=== PATIENT | male | born 1995 | race American Indian/Alaskan Native ===

== ENCOUNTER 2019-05-16 00:19 | Emergency (ER) | payer OTHER ==
[2019-05-16 00:54] VITALS: BP 139/76
[2019-05-16] MEDS ORDERED: XYLOCAINE 1% MPF 5 mL INFILTRATI ONE (04:32)
[2019-05-16] MEDS ORDERED: IBUPROFEN PO ONE (04:32)
[2019-05-16] MEDS ORDERED: BACTRIM DS PO ONE (04:32)
[2019-05-16] MEDS ORDERED: PERCOCET 5/325 PO ONE (06:08)
[2019-05-16] MEDS ORDERED: ZOFRAN ODT PO ONE (06:08)
--- NOTE | 2019-05-16 06:13 | Emergency Department Report ---
- General Chief Complaint: Skin/Abscess/Foreign Body Stated Complaint: CYST/ARM PAIN Source: patient Mode of arrival: Ambulatory Limitations: No Limitations - History of Present Illness Initial Comments: Patient is a 23-year-old AA male with no past medical history presenting to the ED with complaint of acute onset persistent severe painful swollen erythematous macular papular rash with fluctuance on posterior left forearm for the last 5 days after being bitten by unknown insect. Patient states that he has not been able to sleep in the last 24 hours because of pain. Patient denies fever, chills, nausea, vomiting, numbness or tingling of the left, dizziness, chest pain, shortness of breath, traumatic injury or fall. -: Sudden, days(s) (5) Location: other (left forearm posteriorly) Extremity Location: Left: Forearm (Posterior) 1 - Swollen painful erythematous fluctuant rash 2 - Swollen erythematous maculopapular rash Place: home Patient Tetanus UTD: Yes Context: other (Insect bite) Associated Symptoms: pain. denies: loss of feeling/numbness, suspect foreign body present, unable to move injured part, weakness followed by dizziness, nausea/vomiting, fever Treatments Prior to Arrival: NSAIDS - Related Data Previous Rx's Medication Instructions Recorded Last Taken Type Acetaminophen/Codeine [Tylenol 1 tab PO Q6H PRN #12 tab 05/16/19 Unknown Rx /Codeine # 3 tab] Clindamycin [Clindamycin CAP] 300 mg PO Q8HR #60 capsule 05/16/19 Unknown Rx Ibuprofen [Motrin] 600 mg PO Q8H PRN #20 tablet 05/16/19 Unknown Rx Ondansetron [Zofran Odt] 4 mg PO Q6HR PRN #15 tab.rapdis 05/16/19 Unknown Rx Sulfamethoxazole/Trimethoprim 1 each PO Q12H #20 tablet 05/16/19 Unknown Rx [Bactrim DS TAB] Allergies Allergy/AdvReac Type Severity Reaction Status Date / Time chocolate flavor Allergy Unknown Verified 05/16/19 00:52 ED Review of Systems ROS: Stated complaint: CYST/ARM PAIN Other details as noted in HPI Constitutional: denies: chills, fever Eyes: denies: eye pain, eye discharge, vision change ENT: denies: ear pain, throat pain Respiratory: denies: cough, shortness of breath, wheezing Cardiovascular: denies: chest pain, palpitations Endocrine: no symptoms reported Gastrointestinal: denies: abdominal pain, nausea, diarrhea Genitourinary: denies: urgency, dysuria Musculoskeletal: arthralgia (posterior left forearm pain due to erythematous maculopapular fluctuant painful rash ), myalgia. denies: back pain, joint swelling Skin: rash (erythematous maculopapular fluctuant painful rash on posterior left forearm), pruritus. denies: lesions Neurological: denies: headache, weakness, paresthesias Psychiatric: denies: anxiety, depression Hematological/Lymphatic: denies: easy bleeding, easy bruising ED Past Medical Hx - Past Medical History Previous Medical History?: No - Surgical History Past Surgical History?: No - Social History Smoking Status: Current Every Day Smoker Substance Use Type: None - Medications Home Medications: Home Medications Medication Instructions Recorded Confirmed Last Taken Type Acetaminophen/Codeine [Tylenol 1 tab PO Q6H PRN #12 tab 05/16/19 Unknown Rx /Codeine # 3 tab] Clindamycin [Clindamycin CAP] 300 mg PO Q8HR #60 capsule 05/16/19 Unknown Rx Ibuprofen [Motrin] 600 mg PO Q8H PRN #20 tablet 05/16/19 Unknown Rx Ondansetron [Zofran Odt] 4 mg PO Q6HR PRN #15 tab.rapdis 05/16/19 Unknown Rx Sulfamethoxazole/Trimethoprim 1 each PO Q12H #20 tablet 05/16/19 Unknown Rx [Bactrim DS TAB] ED Physical Exam - General Limitations: No Limitations General appearance: alert, in no apparent distress - Head Head exam: Present: atraumatic, normocephalic, normal inspection - Eye Eye exam: Present: normal appearance, PERRL, EOMI Pupils: Present: normal accommodation - ENT ENT exam: Present: normal exam, normal orophraynx, mucous membranes moist, TM's normal bilaterally, normal external ear exam - Neck Neck exam: Present: normal inspection, full ROM - Respiratory Respiratory exam: Present: normal lung sounds bilaterally. Absent: respiratory distress, wheezes, rales, stridor, chest wall tenderness, decreased breath sounds - Cardiovascular Cardiovascular Exam: Present: normal rhythm, tachycardia, normal heart sounds. Absent: systolic murmur, diastolic murmur, rubs, gallop - GI/Abdominal GI/Abdominal exam: Present: soft, normal bowel sounds. Absent: tenderness, guarding, hyperactive bowel sounds, hypoactive bowel sounds - Rectal Rectal exam: Present: deferred - Extremities Exam Extremities exam: Present: normal inspection, full ROM, tenderness (palpable tenderness on posterior left forearm due to erythematous maculopapular fluctuant rash), normal capillary refill. Absent: joint swelling, calf tenderness - Back Exam Back exam: Present: normal inspection, full ROM. Absent: tenderness, CVA tenderness (L), muscle spasm, paraspinal tenderness - Neurological Exam Neurological exam: Present: alert, oriented X3, CN II-XII intact, normal gait, reflexes normal - Psychiatric Psychiatric exam: Present: normal affect, normal mood, anxious - Skin Skin exam: Present: warm, dry, intact, rash (erythematous maculopapular fluctuant rash on posterior left forearm with tenderness), erythema ED Course Vital Signs 05/16/19 00:53 Temperature 98.8 F Pulse Rate 106 H Respiratory 18 Rate Blood Pressure 139/76 [Right] O2 Sat by Pulse 98 Oximetry - Reevaluation(s) Reevaluation #1: 05/16/19 06:21 This is a 23-year-old male who presented to the ED with painful swollen erythematous macular papular rash with fluctuance on the posterior left forearm. 5 days. In the ED, patient is alert and oriented 3, anxious and appears to be in pain but in no acute distress. Patient was treated for pain and given initial oral antibiotic dose and 80. The left forearm fluctuant rash was cleaned thoroughly and incised and drained per protocol, the patient tolerated the procedure without. The wound was cleaned thoroughly and packed with iodoform gauze and dressed appropriately. On reevaluation, patient's pain is well-controlled with medications. Patient was discharged home on oral antibiotics and pain medications and was advised to return to the ED in 2 days for wound recheck and packing removal. Patient was otherwise advised to follow- up with his primary care physician in 7-10 days for reevaluation or return to the ED immediately if symptoms get worse. - I & D Left Posterior Arm Type of Procedure: Simple Site: Posterior left forearm Blade Size: 11 I & D Procedure: betadine prep, sterile drapes applied, sterile dressing applied Progress: Patient tolerated the procedure well. Anesthesia was completely achieved prior to the initiation of the procedure. The wound was cleaned thoroughly, debrided and packed with iodoform gauze. The wound was then dressed appropriately and the patient is sent home on antibiotics and pain medications and advised to return to the ED in 2 days for wound recheck and packing removal. ED Medical Decision Making - Medical Decision Making This is a 23-year-old male who presented to the ED with painful swollen erythematous macular papular rash with fluctuance on the posterior left forearm. 5 days. In the ED, patient is alert and oriented 3, anxious and appears to be in pain but in no acute distress. Patient was treated for pain and given initial oral antibiotic dose and 80. The left forearm fluctuant rash was cleaned thoroughly and incised and drained per protocol, the patient tolerated the procedure without. The wound was cleaned thoroughly and packed with iodoform gauze and dressed appropriately. On reevaluation, patient's pain is well-controlled with medications. Patient was discharged home on oral antibiotics and pain medications and was advised to return to the ED in 2 days for wound recheck and packing removal. Patient was otherwise advised to follow- up with his primary care physician in 7-10 days for reevaluation or return to the ED immediately if symptoms get worse. - Differential Diagnosis cellulitis; insect bite; abscess; spider bite; folliculitis Critical care attestation.: If time is entered above; I have spent that time in minutes in the direct care of this critically ill patient, excluding procedure time. ED Disposition Clinical Impression: Cutaneous abscess of left upper extremity, Cellulitis of left forearm Insect bite of left upper extremity with infection Qualifiers: Encounter type: initial encounter Qualified Code(s): S40.862A - Insect bite (nonvenomous) of left upper arm, initial encounter; L08.9 - Local infection of the skin and subcutaneous tissue, unspecified; W57.XXXA - Bitten or stung by nonvenomous insect and other nonvenomous arthropods, initial encounter Disposition: - TO HOME OR SELFCARE Is pt being admited?: No Does the pt Need Aspirin: No Condition: Stable Instructions: Cellulitis (ED), Abscess (ED), Insect Bite or Sting (ED) Additional Instructions: Take medications with food, drink plenty of fluids and follow-up with your primary care physician in 7-10 days for reevaluation. Return to the ED immediat manas if symptoms get worse. Otherwise return to the ED in 2 days for wound recheck and packing removal. Prescriptions: Sulfamethoxazole/Trimethoprim [Bactrim DS TAB] 1 each PO Q12H #20 tablet Clindamycin [Clindamycin CAP] 300 mg PO Q8HR #60 capsule Ibuprofen [Motrin] 600 mg PO Q8H PRN #20 tablet PRN Reason: Pain Acetaminophen/Codeine [Tylenol /Codeine # 3 tab] 1 tab PO Q6H PRN #12 tab PRN Reason: Pain , Severe (7-10) Ondansetron [Zofran Odt] 4 mg PO Q6HR PRN #15 tab.rapdis PRN Reason: Nausea Referrals: PRIMARY CARE, [Primary Care Provider] - 3-5 Days Forms: Work/School Release Form(ED) Time of Disposition: 06:10 Print Language: CHINESE
== END 2019-05-16 06:21 | disposition home or self-care (01) ==
LOC: ED 00:19
DX: S40.862A Insect bite (nonvenomous) of left upper arm, initial encounter (principal); L03.114 Cellulitis of left upper limb; F17.200 Nicotine dependence, unspecified, uncomplicated; Z91.018 Allergy to other foods; Z79.899 Other long term (current) drug therapy; Z79.1 Long term (current) use of non-steroidal anti-inflammatories (NSAID); W57.XXXA Bitten or stung by nonvenomous insect and other nonvenomous arthropods, initial encounter; Y93.89 Activity, other specified; Y92.89 Other specified places as the place of occurrence of the external cause; Y99.8 Other external cause status
CPT/HCPCS: Q0162

== ENCOUNTER 2019-05-21 14:21 | Emergency (ER) | payer OTHER ==
--- NOTE | 2019-05-21 14:32 | Event Note ---
ED Screening Note Date of service: 05/21/19 Time: 14:30 ED Screening Note: This is a 23 y.o. M. that presents to the ER for packing to left forearm removal. This initial assessment/diagnostic orders/clinical plan/treatment(s) is/are subject to change based on patients health status, clinical progression and re- assessment by fellow clinical providers in the ED. Further treatment and workup at subsequent clinical providers discretion. Patient/guardian urged not to elope from the ED as their condition may be serious if not clinically assessed and managed. Initial orders include: ACC for further evaluation.
[2019-05-21] MEDS ORDERED: IBUPROFEN PO ONE (16:15)
--- NOTE | 2019-05-21 16:16 | Emergency Department Report ---
ED Recheck HPI - General Chief Complaint: Laceration/Recheck/Suture Stated Complaint: PACKING REMOVAL Time Seen by Provider: 05/21/19 14:30 Source: patient Mode of arrival: Ambulatory Limitations: No Limitations - History of Present Illness Initial Comments: This is a 23-year-old male nontoxic, well nourished in appearance, no acute signs of distress presents to the ED with c/o of for packing removal. Patient stated he had a abscess to left forearm that has been lanced and packing applied. Patient denies any new symptoms. Patient stated he did not take his antibiotics as it was instructed and prescribed. Patient stated he lost his prescription. Patient denies any fever, chills, nausea, vomiting, chest pain, shortness of breath, headache or stiff neck. Patient denies any drug allergies. MD Complaint: wound re-check -: days(s) (5) Initial Visit For: abscess Returns Today for: wound recheck Symptoms Since Prior Visit: no new symptoms, improved Associated Symptoms: none. denies: fever, chills, chest pain, shortness of breath, rash, malaise, nasuea, abdominal pain - Related Data Previous Rx's Medication Instructions Recorded Last Taken Type Acetaminophen/Codeine [Tylenol 1 tab PO Q6H PRN #12 tab 05/16/19 Unknown Rx /Codeine # 3 tab] Clindamycin [Clindamycin CAP] 300 mg PO Q8HR #60 capsule 05/16/19 Unknown Rx Ibuprofen [Motrin] 600 mg PO Q8H PRN #20 tablet 05/16/19 Unknown Rx Ondansetron [Zofran Odt] 4 mg PO Q6HR PRN #15 tab.rapdis 05/16/19 Unknown Rx Sulfamethoxazole/Trimethoprim 1 each PO Q12H #20 tablet 05/16/19 Unknown Rx [Bactrim DS TAB] Clindamycin [Clindamycin CAP] 300 mg PO Q8H #60 cap 05/21/19 Unknown Rx Sulfamethoxazole/Trimethoprim 1 each PO BID #20 tablet 05/21/19 Unknown Rx [Bactrim DS TAB] Allergies Allergy/AdvReac Type Severity Reaction Status Date / Time chocolate flavor Allergy Unknown Verified 05/16/19 00:52 ED Review of Systems ROS: Stated complaint: PACKING REMOVAL Other details as noted in HPI Constitutional: denies: chills, fever Eyes: denies: eye pain, eye discharge, vision change ENT: denies: ear pain, throat pain Respiratory: denies: cough, shortness of breath, wheezing Cardiovascular: denies: chest pain, palpitations Endocrine: no symptoms reported Gastrointestinal: denies: abdominal pain, nausea, diarrhea Genitourinary: denies: urgency, dysuria Musculoskeletal: denies: back pain, joint swelling, arthralgia Skin: denies: rash, lesions Neurological: denies: headache, weakness, paresthesias Psychiatric: denies: anxiety, depression Hematological/Lymphatic: denies: easy bleeding, easy bruising ED Past Medical Hx - Past Medical History Previous Medical History?: No - Surgical History Past Surgical History?: No - Social History Smoking Status: Current Every Day Smoker Substance Use Type: Marijuana - Medications Home Medications: Home Medications Medication Instructions Recorded Confirmed Last Taken Type Acetaminophen/Codeine [Tylenol 1 tab PO Q6H PRN #12 tab 05/16/19 Unknown Rx /Codeine # 3 tab] Clindamycin [Clindamycin CAP] 300 mg PO Q8HR #60 capsule 05/16/19 Unknown Rx Ibuprofen [Motrin] 600 mg PO Q8H PRN #20 tablet 05/16/19 Unknown Rx Ondansetron [Zofran Odt] 4 mg PO Q6HR PRN #15 tab.rapdis 05/16/19 Unknown Rx Sulfamethoxazole/Trimethoprim 1 each PO Q12H #20 tablet 05/16/19 Unknown Rx [Bactrim DS TAB] Clindamycin [Clindamycin CAP] 300 mg PO Q8H #60 cap 05/21/19 Unknown Rx Sulfamethoxazole/Trimethoprim 1 each PO BID #20 tablet 05/21/19 Unknown Rx [Bactrim DS TAB] ED Physical Exam - General Limitations: No Limitations General appearance: alert, in no apparent distress - Head Head exam: Present: atraumatic, normocephalic - Eye Eye exam: Present: normal appearance - Extremities Exam Extremities exam: Present: normal inspection, full ROM, tenderness, normal capillary refill, other (left forearm packing one fourth iodoform removed. No pus or drainage. No swelling. Open wound present.). Absent: joint swelling - Back Exam Back exam: Present: normal inspection, full ROM - Neurological Exam Neurological exam: Present: alert, oriented X3, normal gait - Psychiatric Psychiatric exam: Present: normal affect, normal mood - Skin Skin exam: Present: warm, dry, intact, normal color. Absent: rash ED Course Vital Signs 05/21/19 14:30 Temperature 98.5 F Pulse Rate 95 H Respiratory 18 Rate Blood Pressure 129/77 O2 Sat by Pulse 98 Oximetry - Reevaluation(s) Reevaluation #1: 05/21/19 16:13 Patient is speaking in full sentences with no signs of distress noted. ED Recheck MDM - Medical Decision Making One fourth iota form packing removal. I will discharge patient with prescription that was Khadijah prescribed to him by previous provider of Bactrim and clindamycin. Patient was educated on proper wound care. A sterile dressing has been applied. Area has been clean prior to applying the sterile dressing. Patient was instructed to Follow-up with a primary care doctor in 3-5 days or if symptoms worsen and continue return to emergency room as soon as possible. At time of discharge, the patient does not seem toxic or ill in appearance. No acute signs of distress noted. Patient agrees to discharge treatment plan of care. No further questions noted by the patient. Critical care attestation.: If time is entered above; I have spent that time in minutes in the direct care of this critically ill patient, excluding procedure time. ED Disposition Clinical Impression: Abscess packing removal Disposition: [id number] TO HOME OR SELFCARE Is pt being admited?: No Does the pt Need Aspirin: No Condition: Stable Instructions: Acute Wound Care (ED) Additional Instructions: Follow-up with a primary care doctor in 3-5 days or if symptoms worsen and continue return to emergency room as soon as possible. As educated to use it is crucial that you take your antibiotics as prescribed to. Prescriptions: Sulfamethoxazole/Trimethoprim [Bactrim DS TAB] 1 each PO BID #20 tablet Clindamycin [Clindamycin CAP] 300 mg PO Q8H #60 cap Referrals: PRIMARY CAREMD [Primary Care Provider] - 3-5 Days BRANDIE TOSCANO MD [Staff Physician] - 3-5 Days [facility] [Outside] - 3-5 Days [facility] [Outside] - 3-5 Days Forms: Work/School Release Form(ED)
[2019-05-21 16:28] VITALS: BP 121/70
== END 2019-05-21 16:27 | disposition home or self-care (01) ==
LOC: ED 14:21
DX: L02.414 Cutaneous abscess of left upper limb (principal); F17.200 Nicotine dependence, unspecified, uncomplicated; F12.90 Cannabis use, unspecified, uncomplicated; Z79.899 Other long term (current) drug therapy; Z91.018 Allergy to other foods
CPT/HCPCS: 99283

== ENCOUNTER 2022-01-07 00:56 | Emergency (ER) | payer SELFPAY ==
[2022-01-07 02:03] VITALS: BP 109/61
--- NOTE | 2022-01-07 02:33 | Emergency Department Report ---
ED General Adult HPI - General Chief complaint: Dental/Oral Stated complaint: MOUTH ULCERS Source: patient Mode of arrival: Ambulatory Limitations: No Limitations - History of Present Illness Initial comments: Patient is a 26-year-old -Ira[place] male with no past medical history who presents to the ED with complaint of acute onset persistent painful multiple oral ulcerated lesions on the left mandibular gingival pain and swelling for the last 1 month. Patient states that the ulcers in the mouth have worsened in the last 1 week stated he is unable to eat or drink anything because of worsening pain. Patient denies fever, chills, nausea and vomiting, dizziness, syncope, dysphagia, dysphonia, headache, nasal and sinus congestion, chest pain or shortness of breath. MD Complaint: Sore throat; oral ulcers ; mouth pain -: Sudden, month(s) (1) Location: mouth Radiation: non-radiation Severity scale (0 -10): 7 Quality: aching, sharp Consistency: constant Improves with: none Worsens with: none Associated Symptoms: denies other symptoms. denies: confusion, chest pain, cough, diaphoresis, fever/chills, headaches, loss of appetite, malaise, nausea/vomiting, rash, seizure, shortness of breath, syncope, weakness, other Treatments Prior to Arrival: none - Related Data Previous Rx's Medication Instructions Recorded Last Taken Type Acetaminophen/Codeine [Tylenol 1 tab PO Q6H PRN #12 tab 05/16/19 Unknown Rx /Codeine # 3 tab] Clindamycin [Clindamycin CAP] 300 mg PO Q8HR #60 capsule 05/16/19 Unknown Rx Ibuprofen [Motrin] 600 mg PO Q8H PRN #20 tablet 05/16/19 Unknown Rx Ondansetron [Zofran Odt] 4 mg PO Q6HR PRN #15 tab.rapdis 05/16/19 Unknown Rx Sulfamethoxazole/Trimethoprim 1 each PO Q12H #20 tablet 05/16/19 Unknown Rx [Bactrim DS TAB] Sulfamethoxazole/Trimethoprim 1 each PO BID #20 tablet 05/21/19 Unknown Rx [Bactrim DS TAB] Acyclovir 400 mg PO Q8H #30 tab 01/07/22 Unknown Rx Clindamycin [Clindamycin CAP] 300 mg PO Q8H #30 cap 01/07/22 Unknown Rx Ibuprofen [Motrin] 600 mg PO Q8H PRN #30 tablet 01/07/22 Unknown Rx Lidocaine Viscous 2% 10 ml PO Q6H PRN #120 ml 01/07/22 Unknown Rx Allergies Allergy/AdvReac Type Severity Reaction Status Date / Time chocolate flavor Allergy Unknown Verified 05/16/19 00:52 ED Review of Systems ROS: Stated complaint: MOUTH ULCERS Other details as noted in HPI Constitutional: denies: chills, fever Eyes: denies: eye pain, eye discharge, vision change ENT: throat pain, other (Multiple ulcerated oral lesions with pain). denies: ear pain Respiratory: denies: cough, shortness of breath, wheezing Cardiovascular: denies: chest pain, palpitations Endocrine: no symptoms reported Gastrointestinal: denies: abdominal pain, nausea, vomiting, diarrhea Genitourinary: denies: urgency, dysuria Musculoskeletal: denies: back pain, joint swelling, arthralgia Skin: denies: rash, lesions Neurological: denies: headache, weakness, paresthesias Psychiatric: denies: anxiety, depression Hematological/Lymphatic: denies: easy bleeding, easy bruising ED Past Medical Hx - Social History Smoking Status: Current Every Day Smoker Substance Use Type: Marijuana - Medications Home Medications: Home Medications Medication Instructions Recorded Confirmed Last Taken Type Acetaminophen/Codeine [Tylenol 1 tab PO Q6H PRN #12 tab 05/16/19 Unknown Rx /Codeine # 3 tab] Clindamycin [Clindamycin CAP] 300 mg PO Q8HR #60 capsule 05/16/19 Unknown Rx Ibuprofen [Motrin] 600 mg PO Q8H PRN #20 tablet 05/16/19 Unknown Rx Ondansetron [Zofran Odt] 4 mg PO Q6HR PRN #15 tab.rapdis 05/16/19 Unknown Rx Sulfamethoxazole/Trimethoprim 1 each PO Q12H #20 tablet 05/16/19 Unknown Rx [Bactrim DS TAB] Sulfamethoxazole/Trimethoprim 1 each PO BID #20 tablet 05/21/19 Unknown Rx [Bactrim DS TAB] Acyclovir 400 mg PO Q8H #30 tab 01/07/22 Unknown Rx Clindamycin [Clindamycin CAP] 300 mg PO Q8H #30 cap 01/07/22 Unknown Rx Ibuprofen [Motrin] 600 mg PO Q8H PRN #30 tablet 01/07/22 Unknown Rx Lidocaine Viscous 2% 10 ml PO Q6H PRN #120 ml 01/07/22 Unknown Rx ED Physical Exam - General Limitations: No Limitations General appearance: alert, in no apparent distress - Head Head exam: Present: atraumatic, normocephalic, normal inspection - Eye Eye exam: Present: normal appearance, PERRL, EOMI Pupils: Present: normal accommodation - ENT ENT exam: Present: mucous membranes moist, TM's normal bilaterally, normal external ear exam, other (Multiple oral ulcerated lesions; Mild erythematous oropharynx with multiple lesions) - Neck Neck exam: Present: normal inspection, full ROM. Absent: tenderness, lymphadenopathy - Respiratory Respiratory exam: Present: normal lung sounds bilaterally. Absent: respiratory distress, wheezes, rales, rhonchi, chest wall tenderness, accessory muscle use, decreased breath sounds, prolonged expiratory - Cardiovascular Cardiovascular Exam: Present: regular rate, normal rhythm, normal heart sounds. Absent: systolic murmur, diastolic murmur, rubs, gallop - GI/Abdominal GI/Abdominal exam: Present: soft, normal bowel sounds. Absent: tenderness, guarding, rebound, hyperactive bowel sounds, hypoactive bowel sounds, organomegaly - Extremities Exam Extremities exam: Present: normal inspection, full ROM, normal capillary refill. Absent: tenderness - Back Exam Back exam: Present: normal inspection, full ROM. Absent: tenderness, CVA tenderness (R), CVA tenderness (L), muscle spasm, paraspinal tenderness, vertebral tenderness - Neurological Exam Neurological exam: Present: alert, oriented X3, CN II-XII intact, normal gait, reflexes normal - Psychiatric Psychiatric exam: Present: normal affect, normal mood - Skin Skin exam: Present: warm, dry, intact, normal color. Absent: rash ED Course Vital Signs 01/07/22 01:33 Temperature 98.6 F Pulse Rate 63 Respiratory 18 Rate Blood Pressure 109/61 O2 Sat by Pulse 96 Oximetry ED Medical Decision Making - Medical Decision Making This is a 26-year-old -Iraqi male with no past medical history who presents to the ED with complaint of acute onset persistent painful multiple oral ulcerated lesions on the left mandibular gingival pain and swelling for the last 1 month. Patient states that the ulcers in the mouth have worsened in the last 1 week stated he is unable to eat or drink anything because of worsening pain. In the ED, patient is alert and oriented x3 and is not in any distress. Patient was discharged home on medications based on the history and physical exam findings. Patient symptoms are likely due to herpes simplex type I viral infection or gingivostomatitis complicated by bacterial infection in the mouth. Patient was therefore discharged home on medications and advised to follow-up with his primary care physician in 7 to 10 days for reevaluation. Patient was advised return to the ED immediately if symptoms get worse. - Differential Diagnosis HSV type I; oral ulcers; intraoral infection; gingivitis Critical care attestation.: If time is entered above; I have spent that time in minutes in the direct care of this critically ill patient, excluding procedure time. ED Disposition Clinical Impression: Gingivostomatitis, Oral ulceration, Acute gingivitis Disposition: HOME / SELF CARE / HOMELESS Is pt being admited?: No Does the pt Need Aspirin: No Condition: Stable Instructions: Stomatitis, [id number] Additional Instructions: Take medication with food, drink plenty fluids and follow-up with your primary care physician in 7 to 10 days for reevaluation. Return to the ED immediately if symptoms get worse. Prescriptions: Acyclovir 400 mg PO Q8H #30 tab Clindamycin [Clindamycin CAP] 300 mg PO Q8H #30 cap Lidocaine Viscous 2% 10 ml PO Q6H PRN #120 ml PRN Reason: Sore Throat Ibuprofen [Motrin] 600 mg PO Q8H PRN #30 tablet PRN Reason: Pain Referrals: [facility] [Provider Group] - 7-10 days Forms: Work/School Release Form(ED) Time of Disposition: 02:34 Print Language: MACEDONIAN
[2022-01-07] MEDS ORDERED: IBUPROFEN 600 MG TAB PO ONE (02:54)
== END 2022-01-07 03:05 | disposition home or self-care (01) ==
LOC: ED 00:56
DX: K05.10 Chronic gingivitis, plaque induced (principal); K12.30 Oral mucositis (ulcerative), unspecified; K05.00 Acute gingivitis, plaque induced; F17.200 Nicotine dependence, unspecified, uncomplicated; F12.90 Cannabis use, unspecified, uncomplicated; Z91.018 Allergy to other foods
CPT/HCPCS: 99282

== ENCOUNTER 2022-02-14 10:03 | Emergency (ER) | payer SELFPAY ==
[2022-02-14] MEDS ORDERED: traMADol 50 MG TAB PO ONE (12:46)
--- NOTE | 2022-02-14 13:29 | Emergency Department Report ---
ED General Adult HPI - General Chief complaint: Dental/Oral Stated complaint: MOUTH ULCERS Time Seen by Provider: 02/14/22 12:46 Source: patient Mode of arrival: Ambulatory Limitations: No Limitations - History of Present Illness Initial comments: Patient is a 26-year-old -[place]ren[place] male history of oral ulcers for past month, who presents to the ED for complaint persistent painful multiple oral ulcerated lesions. Patient states he was treated with acyclovir and clindamycin which was healing ulcers however he did not follow-up with primary care as directed and has run out of acyclovir requesting refill of same. Patient denies fevers or chills there is no throat pain no no sinus or eye pain. No decrease in vision. There is no increase or rash no rash to palms or soles of feet. Patient denies genital ulcers. No dysuria frequency or discharge. Patient denies fever, chills, nausea and vomiting, dizziness, syncope, dysphagia, dyspho jamil, headache, nasal and sinus congestion, chest pain or shortness of breath. Patient denies other medical history no STI,no HIV, no HSV, Syphilis. Pain is rated at 4/10 nagging burning stinging. Pain is exacerbated by p.o. intake. - Related Data Previous Rx's Medication Instructions Recorded Last Taken Type Acetaminophen/Codeine [Tylenol 1 tab PO Q6H PRN #12 tab 05/16/19 Unknown Rx /Codeine # 3 tab] Clindamycin [Clindamycin CAP] 300 mg PO Q8HR #60 capsule 05/16/19 Unknown Rx Ibuprofen [Motrin] 600 mg PO Q8H PRN #20 tablet 05/16/19 Unknown Rx Ondansetron [Zofran Odt] 4 mg PO Q6HR PRN #15 tab.rapdis 05/16/19 Unknown Rx Sulfamethoxazole/Trimethoprim 1 each PO Q12H #20 tablet 05/16/19 Unknown Rx [Bactrim DS TAB] Sulfamethoxazole/Trimethoprim 1 each PO BID #20 tablet 05/21/19 Unknown Rx [Bactrim DS TAB] Acyclovir 400 mg PO Q8H #30 tab 01/07/22 Unknown Rx Clindamycin [Clindamycin CAP] 300 mg PO Q8H #30 cap 01/07/22 Unknown Rx Ibuprofen [Motrin] 600 mg PO Q8H PRN #30 tablet 01/07/22 Unknown Rx Lidocaine Viscous 2% 10 ml PO Q6H PRN #120 ml 01/07/22 Unknown Rx Acyclovir [Zovirax Tab] 800 mg PO BID #20 tab 02/14/22 Unknown Rx Nystas/Diphen/Xyl Visc/Mylanta 15 ml MM TID PRN #480 ml 02/14/22 Unknown Rx [Magic Mouthwash] Allergies Allergy/AdvReac Type Severity Reaction Status Date / Time chocolate flavor Allergy Unknown Verified 05/16/19 00:52 ED Review of Systems ROS: Stated complaint: MOUTH ULCERS Other details as noted in HPI Constitutional: denies: chills, fever Eyes: denies: eye pain, eye discharge, vision change ENT: other (oral ulcers) Respiratory: denies: cough, shortness of breath, wheezing Cardiovascular: denies: chest pain, palpitations Endocrine: no symptoms reported Gastrointestinal: denies: abdominal pain, nausea, vomiting, diarrhea Genitourinary: denies: urgency, dysuria, frequency, hematuria, discharge Musculoskeletal: denies: back pain, joint swelling, arthralgia Skin: denies: rash, lesions Neurological: denies: headache, weakness, paresthesias Psychiatric: denies: anxiety, depression Hematological/Lymphatic: denies: easy bleeding, easy bruising ED Past Medical Hx - Social History Smoking Status: Current Every Day Smoker Substance Use Type: Marijuana - Medications Home Medications: Home Medications Medication Instructions Recorded Confirmed Last Taken Type Acetaminophen/Codeine [Tylenol 1 tab PO Q6H PRN #12 tab 05/16/19 Unknown Rx /Codeine # 3 tab] Clindamycin [Clindamycin CAP] 300 mg PO Q8HR #60 capsule 05/16/19 Unknown Rx Ibuprofen [Motrin] 600 mg PO Q8H PRN #20 tablet 05/16/19 Unknown Rx Ondansetron [Zofran Odt] 4 mg PO Q6HR PRN #15 tab.rapdis 05/16/19 Unknown Rx Sulfamethoxazole/Trimethoprim 1 each PO Q12H #20 tablet 05/16/19 Unknown Rx [Bactrim DS TAB] Sulfamethoxazole/Trimethoprim 1 each PO BID #20 tablet 05/21/19 Unknown Rx [Bactrim DS TAB] Acyclovir 400 mg PO Q8H #30 tab 01/07/22 Unknown Rx Clindamycin [Clindamycin CAP] 300 mg PO Q8H #30 cap 01/07/22 Unknown Rx Ibuprofen [Motrin] 600 mg PO Q8H PRN #30 tablet 01/07/22 Unknown Rx Lidocaine Viscous 2% 10 ml PO Q6H PRN #120 ml 01/07/22 Unknown Rx Acyclovir [Zovirax Tab] 800 mg PO BID #20 tab 02/14/22 Unknown Rx Nystas/Diphen/Xyl Visc/Mylanta 15 ml MM TID PRN #480 ml 02/14/22 Unknown Rx [Magic Mouthwash] ED Physical Exam - General Limitations: No Limitations General appearance: alert, in no apparent distress - Head Head exam: Present: atraumatic, normocephalic - Eye Eye exam: Present: normal appearance, EOMI Pupils: Present: normal accommodation - ENT ENT exam: Present: mucous membranes moist - Expanded ENT Exam Expanded Mouth exam: Present: normal external inspection (2 small lip ulcers), tongue normal, other (Multiple oral ulcers). Absent: drooling, trismus, tongue elevation, laceration Throat exam: Positive: other (No exudate airway is patent no stridor no wheezing). Negative: tonsillar erythema, tonsillomegaly - Neck Neck exam: Present: normal inspection, full ROM. Absent: tenderness, lymphadenopathy - Respiratory Respiratory exam: Present: normal lung sounds bilaterally. Absent: respiratory distress, wheezes - Cardiovascular Cardiovascular Exam: Present: regular rate, normal rhythm. Absent: systolic murmur, diastolic murmur, rubs, gallop - GI/Abdominal GI/Abdominal exam: Present: soft, normal bowel sounds. Absent: distended, tenderness - Rectal Rectal exam: Present: deferred - Extremities Exam Extremities exam: Present: normal inspection, full ROM, normal capillary refill. Absent: tenderness - Back Exam Back exam: Present: normal inspection, full ROM. Absent: CVA tenderness (R), CVA tenderness (L) - Neurological Exam Neurological exam: Present: alert, oriented X3, CN II-XII intact, normal gait - Psychiatric Psychiatric exam: Present: normal affect, normal mood - Skin Skin exam: Present: warm, dry, intact, normal color. Absent: rash ED Course Vital Signs 02/14/22 10:21 Temperature 98.2 F Pulse Rate 72 Respiratory 16 Rate Blood Pressure 115/74 [Right] O2 Sat by Pulse 98 Oximetry ED Medical Decision Making - Medical Decision Making Oral ulcers likely HSV as they respond to acyclovir. Patient is tolerating p.o. intake airway is patent there is no swelling no oral obstruction. Refill acyclovir, follow-up with health department for HSV screening. Patient verbalizes agreement and understanding with discharge plan. Patient DC'd home with prescriptions. Patient will follow-up with primary care doctor in 2 to 3 days and follow up with health department for HSV screening.. Patient will return to emergency department should symptoms worsen. Critical care attestation.: If time is entered above; I have spent that time in minutes in the direct care of this critically ill patient, excluding procedure time. ED Disposition Clinical Impression: Oral ulcer Disposition: 01 HOME / SELF CARE / HOMELESS Is pt being admited?: No Does the pt Need Aspirin: No Condition: Stable Instructions: Cold Sore, [id number] Additional Instructions: Take medications as prescribed, follow-up with health department for HSV screening. Follow-up with your primary care doctor in 2 to 3 days. Return to emergency department should symptoms worsen. Prescriptions: Nystas/Diphen/Xyl Visc/Mylanta [Magic Mouthwash] 15 ml MM TID PRN #480 ml PRN Reason: Pain , Severe (7-10) Acyclovir [Zovirax Tab] 800 mg PO BID #20 tab [facility] - [facility]-5 Days [facility] [Provider Group] - 3-5 Days Forms: Work/School Release Form(ED) Time of Disposition: 13:49
[2022-02-14] MEDS ORDERED: ACYCLOVIR 200 MG CAP PO ONE (14:00)
[2022-02-14 14:45] VITALS: BP 124/86
== END 2022-02-14 14:43 | disposition home or self-care (01) ==
LOC: ED 10:03
DX: K12.1 Other forms of stomatitis (principal); F17.200 Nicotine dependence, unspecified, uncomplicated; Z91.011 Allergy to milk products; Z79.899 Other long term (current) drug therapy
CPT/HCPCS: 99282

== ENCOUNTER 2022-03-11 19:55 | Emergency (ER) | payer SELFPAY ==
[2022-03-11 22:06] VITALS: BP 110/78
--- NOTE | 2022-03-12 05:18 | Emergency Department Report ---
ED General Adult HPI - General Chief complaint: Dental/Oral Stated complaint: MOUTH ULCER Time Seen by Provider: 03/12/22 05:13 Source: patient Mode of arrival: Ambulatory Limitations: No Limitations - History of Present Illness Initial comments: Patient 26-year-old male who presents for oral ulcers. States recurring same took antibiotics 1 month ago the symptoms have returned with patient denies history of HSV. There is no swelling or drainage however ulcers are painful. Patient is tolerating p.o. intake however there are no dental abscesses noted no throat or ear pain. No fever or chills. - Related Data Previous Rx's Medication Instructions Recorded Last Taken Type Acetaminophen/Codeine [Tylenol 1 tab PO Q6H PRN #12 tab 05/16/19 Unknown Rx /Codeine # 3 tab] Clindamycin [Clindamycin CAP] 300 mg PO Q8HR #60 capsule 05/16/19 Unknown Rx Ibuprofen [Motrin] 600 mg PO Q8H PRN #20 tablet 05/16/19 Unknown Rx Ondansetron [Zofran Odt] 4 mg PO Q6HR PRN #15 tab.rapdis 05/16/19 Unknown Rx Sulfamethoxazole/Trimethoprim 1 each PO Q12H #20 tablet 05/16/19 Unknown Rx [Bactrim DS TAB] Sulfamethoxazole/Trimethoprim 1 each PO BID #20 tablet 05/21/19 Unknown Rx [Bactrim DS TAB] Acyclovir 400 mg PO Q8H #30 tab 01/07/22 Unknown Rx Clindamycin [Clindamycin CAP] 300 mg PO Q8H #30 cap 01/07/22 Unknown Rx Ibuprofen [Motrin] 600 mg PO Q8H PRN #30 tablet 01/07/22 Unknown Rx Lidocaine Viscous 2% 10 ml PO Q6H PRN #120 ml 01/07/22 Unknown Rx Acyclovir [Zovirax Tab] 800 mg PO BID #20 tab 02/14/22 Unknown Rx Nystas/Diphen/Xyl Visc/Mylanta 15 ml MM TID PRN #480 ml 02/14/22 Unknown Rx [Magic Mouthwash] traMADoL [Ultram] 50 mg PO Q6HR PRN #12 tablet 02/14/22 Unknown Rx Amoxicillin/K Clav Tab [Augmentin 1 tab PO BID 7 Days #14 tab 03/12/22 Unknown Rx 875 mg] Chlorhexidine Mouthwash [Peridex] 15 ml MM BID #1 bottle 03/12/22 Unknown Rx traMADoL [Ultram] 50 mg PO Q6HR PRN #12 tablet 03/12/22 Unknown Rx Allergies Allergy/AdvReac Type Severity Reaction Status Date / Time chocolate flavor Allergy Unknown Verified 05/16/19 00:52 ED Review of Systems ROS: Stated complaint: MOUTH ULCER Other details as noted in HPI Constitutional: denies: chills, fever Eyes: denies: eye pain, eye discharge, vision change ENT: other (Oral ulcers). denies: ear pain, throat pain Respiratory: denies: cough, shortness of breath, wheezing Cardiovascular: denies: chest pain, palpitations Endocrine: no symptoms reported Gastrointestinal: as per HPI. denies: nausea, vomiting Genitourinary: denies: urgency, dysuria Musculoskeletal: denies: back pain, joint swelling, arthralgia Skin: denies: rash, lesions Neurological: denies: headache, weakness, paresthesias Psychiatric: denies: anxiety, depression Hematological/Lymphatic: denies: easy bleeding, easy bruising ED Past Medical Hx - Social History Smoking Status: Current Every Day Smoker Substance Use Type: Marijuana - Medications Home Medications: Home Medications Medication Instructions Recorded Confirmed Last Taken Type Acetaminophen/Codeine [Tylenol 1 tab PO Q6H PRN #12 tab 05/16/19 Unknown Rx /Codeine # 3 tab] Clindamycin [Clindamycin CAP] 300 mg PO Q8HR #60 capsule 05/16/19 Unknown Rx Ibuprofen [Motrin] 600 mg PO Q8H PRN #20 tablet 05/16/19 Unknown Rx Ondansetron [Zofran Odt] 4 mg PO Q6HR PRN #15 tab.rapdis 05/16/19 Unknown Rx Sulfamethoxazole/Trimethoprim 1 each PO Q12H #20 tablet 05/16/19 Unknown Rx [Bactrim DS TAB] Sulfamethoxazole/Trimethoprim 1 each PO BID #20 tablet 05/21/19 Unknown Rx [Bactrim DS TAB] Acyclovir 400 mg PO Q8H #30 tab 01/07/22 Unknown Rx Clindamycin [Clindamycin CAP] 300 mg PO Q8H #30 cap 01/07/22 Unknown Rx Ibuprofen [Motrin] 600 mg PO Q8H PRN #30 tablet 01/07/22 Unknown Rx Lidocaine Viscous 2% 10 ml PO Q6H PRN #120 ml 01/07/22 Unknown Rx Acyclovir [Zovirax Tab] 800 mg PO BID #20 tab 02/14/22 Unknown Rx Nystas/Diphen/Xyl Visc/Mylanta 15 ml MM TID PRN #480 ml 02/14/22 Unknown Rx [Magic Mouthwash] traMADoL [Ultram] 50 mg PO Q6HR PRN #12 tablet 02/14/22 Unknown Rx Amoxicillin/K Clav Tab [Augmentin 1 tab PO BID 7 Days #14 tab 03/12/22 Unknown Rx 875 mg] Chlorhexidine Mouthwash [Peridex] 15 ml MM BID #1 bottle 03/12/22 Unknown Rx traMADoL [Ultram] 50 mg PO Q6HR PRN #12 tablet 03/12/22 Unknown Rx ED Physical Exam - General Limitations: No Limitations General appearance: alert, in no apparent distress - Head Head exam: Present: atraumatic, normocephalic - Eye Eye exam: Present: EOMI Pupils: Present: normal accommodation - ENT ENT exam: Present: mucous membranes moist - Expanded ENT Exam Expanded Mouth exam: Present: other (Multiple oral ulcers left upper lip primary no dental caries no dental abscesses noted). Absent: trismus - Neck Neck exam: Present: normal inspection, full ROM. Absent: tenderness, lymp hadenopathy - Respiratory Respiratory exam: Present: normal lung sounds bilaterally. Absent: respiratory distress, wheezes - Cardiovascular Cardiovascular Exam: Present: regular rate, normal rhythm, normal heart sounds. Absent: systolic murmur, diastolic murmur, rubs, gallop - GI/Abdominal GI/Abdominal exam: Present: soft, normal bowel sounds. Absent: distended, tenderness - Rectal Rectal exam: Present: deferred - Extremities Exam Extremities exam: Present: normal inspection, full ROM, normal capillary refill - Back Exam Back exam: Present: normal inspection, full ROM. Absent: CVA tenderness (R), CVA tenderness (L) - Neurological Exam Neurological exam: Present: alert, oriented X3, CN II-XII intact - Psychiatric Psychiatric exam: Present: normal affect, normal mood - Skin Skin exam: Present: warm, dry, intact, normal color. Absent: rash ED Course Vital Signs 03/11/22 22:04 Temperature 98.0 F Pulse Rate 67 Respiratory 16 Rate Blood Pressure 110/78 O2 Sat by Pulse 97 Oximetry ED Medical Decision Making - Medical Decision Making Oral ULCERS treated for plan DC to home with antibiotics, patient will follow-up with [facility] as directed. Patient verbalized agreement and understanding of discharge plan. Patient DC'd home in stable condition at this time. Critical care attestation.: If time is entered above; I have spent that time in minutes in the direct care of this critically ill patient, excluding procedure time. ED Disposition Clinical Impression: Oral ulcer Disposition: 01 HOME / SELF CARE / HOMELESS Is pt being admited?: No Does the pt Need Aspirin: No Condition: Stable Instructions: Stomatitis, [id number] Additional Instructions: Take medications as prescribed, mouth rinse as directed. Oral care as directed. Follow-up with primary care doctor in 2 to 3 days. Return to emergency department should symptoms worsen. Prescriptions: Amoxicillin/K Clav Tab [Augmentin 875 mg] 1 tab PO BID 7 Days #14 tab Chlorhexidine Mouthwash [Peridex] 15 ml MM BID #1 bottle traMADoL [Ultram] 50 mg PO Q6HR PRN #12 tablet PRN Reason: Pain Referrals: [facility] [Provider Group] - 3-5 Days Forms: Work/School Release Form(ED) Time of Disposition: 05:19
== END 2022-03-12 05:36 | disposition home or self-care (01) ==
LOC: ED 19:55
DX: K12.1 Other forms of stomatitis (principal); F17.290 Nicotine dependence, other tobacco product, uncomplicated; Z91.018 Allergy to other foods
CPT/HCPCS: 99282

== ENCOUNTER 2022-03-24 09:48 | Emergency (ER) | payer SELFPAY ==
[2022-03-24 10:02] VITALS: BP 127/65
== END 2022-03-24 17:55 | disposition left against medical advice (07) ==
LOC: ED 09:48
DX: K13.79 Other lesions of oral mucosa (principal); Z53.21 Procedure and treatment not carried out due to patient leaving prior to being seen by health care provider